=== PATIENT | male | born 1950 | race Caucasian/White ===

== ENCOUNTER 2022-04-22 12:01 | Day surgery (SDC) | payer MEDICARE, OTHER ==
[~2022-04-22] VITALS: Ht 170.3 cm; Wt 87.3 kg
[2022-04-22] MEDS ORDERED: LASIX 20MG TABL20 MG PO (12:17)
[2022-04-22] MEDS ORDERED: TOPROL XL 25MG25 MG PO (12:18)
[2022-04-22] MEDS ORDERED: PRINIVIL10 MG PO (12:18)
[2022-04-22] MEDS ORDERED: ELIQUIS 5MG PO (12:19)
[2022-04-22] MEDS ORDERED: TYLENOL 500MG500 MG PO (12:20)
[2022-04-22 12:49] LABS: HEMATOCRIT 43.8 % (42.0-52.0); HEMOGLOBIN 14.5 g/dl (13.5-18.0); MEAN CELL VOLUME 92 fl (80.0-100.0); MEAN CORPUSCULAR HEMOGLOBIN 31 pg (27-31); MEAN CORPUSCULAR HGB CONC 33 g/dl (33.0-37.0); MEAN PLATELET VOLUME 11.4 fl (7.4-10.4); PLATELET COUNT 217 K/mm3 (130-400); RED BLOOD COUNT 4.76 M/mm3 (4.20-5.60)
[2022-04-22 12:56] VITALS: BP 116/90; PULSE 82; TEMP 97.3
[2022-04-22 13:07] LABS: CALCIUM 9.5 mg/dL (8.4-10.2); CREATININE, serum 1.16 mg/dL (0.72-1.25); MAGNESIUM 2.1 mg/dL (1.6-2.6); POTASSIUM 4.6 mmol/L (3.5-4.5)
[2022-04-22 13:09] LABS: INR 1.6 (0.8-3.0); PROTHROMBIN TIME 18.2 SECONDS (9.7-12.8)
[2022-04-22 13:12] LABS: PARTIAL THROMBOPLASTIN TIME 47.5 SECONDS (26.0-37.0)
[2022-04-22 13:27] LABS: THYROID STIMULATING HORMONE 1.633 uIU/mL (0.350-4.940)
[2022-04-22] MEDS ORDERED: BETAPACE 120MG120 MG PO (13:31)
[2022-04-22 14:15] VITALS: BP 105/77; PULSE 67
[2022-04-22 14:30] VITALS: BP 116/81; PULSE 64
[2022-04-22 14:45] VITALS: BP 114/73; PULSE 67
[2022-04-22 15:00] VITALS: BP 113/79; PULSE 60
[2022-04-22 15:15] VITALS: BP 117/87; PULSE 65
--- NOTE | 2022-04-22 16:15 | NUR ---
PT to exit via wheelchair at this time. Pt did well during his recovery, remaining in sr with occasional pacs during this time. repeat EKG was obtained. I reviewed dc/fu and rx instructions with pt. I did call Dr. Mckeon to clarify when to start PO sotalol, and I received a telephone order to give one 60 mg dose now and to instruct pt to take second dose this evening at bedtime. This was done, and I monitored pt for 20 minutes or so after taking the pill as he had not taken sotalol before. Pt tolerated with no problem. He has been steady on his feet, has been amb to bathroom. Pt and verbalized understanding of discharge instructions and deny concerns at time of departure.
== END 2022-04-22 16:39 | disposition home or self-care (01) ==
LOC: COL.CAR 12:01
PROVIDERS: Internal Medicine Cardiovascular Disease
DX: I48.0 Paroxysmal atrial fibrillation (principal); I10 Essential (primary) hypertension